=== PATIENT | female | born 1995 | race Caucasian/White ===

== ENCOUNTER 2017-08-11 09:16 | Emergency (ER) | payer SELFPAY ==
[~2017-08-11] VITALS: Ht 157.5 cm; Wt 85.0 kg
[2017-08-11 09:19] VITALS: BP 130/68; PULSE 88; RESP 16; TEMP 98.8; O2SAT 100
--- NOTE | 2017-08-11 09:23 | PD ---
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 Patient says that she bleeds almost 4 days a week. It can range anywhere from spotting to a menstrual kind of bleeding all within a day. She soaks on an average 2 pads a day. She has not been dizzy or lightheaded. No cramps. She may occasionally pass small clots. Patient achieved menarche at the age of 11 and has had irregular menstrual periods since then. She does not have a ONCOLOGY RADIATION PHYSICIAN doctor. Patient smokes occasionally cigars. Vital signs were stable. She checked a home test a few days ago which was negative. She is sexually active without any protection [facility] Past Medical History Narrative Medical List of her past medical, surgical, social and family history is reviewed from the nursing note. ?: Unknown Social History Tobacco Use: Yes Allergies-Medications (Allergen,Severity, Reaction): Coded Allergies: No Known Allergies (Unverified , 08/11/17) Comments No known drug allergies. Reported Meds & Prescriptions Reported Meds & Active Scripts Active Ortho Tri-Cyclen (Norgestimate-Ethinyl Estradiol) 0.18/0.215/0.25 mg-35 Mcg Tab 1 Tab PO DAILY Narrative Medication List of her home medications reviewed from the nursing note. Review of Systems Except as stated in HPI: all other systems reviewed are Neg Genitourinary: Positive: Vaginal Bleeding Physical Exam Narrative GENERAL: Awake, alert, no obvious distress SKIN: Focused skin assessment warm/dry. HEAD: Atraumatic. Normocephalic. EYES: Pupils equal and round. No scleral icterus. No injection or drainage. ENT: No nasal bleeding or discharge. Mucous membranes pink and moist. NECK: Trachea midline. No JVD. CARDIOVASCULAR: Regular rate and rhythm. No murmur appreciated. RESPIRATORY: No accessory muscle use. Clear to auscultation. Breath sounds equal bilaterally. GASTROINTESTINAL: Abdomen soft, non-tender, nondistended. Hepatic and splenic margins not palpable. MUSCULOSKELETAL: No obvious deformities. No clubbing. No cyanosis. No edema. NEUROLOGICAL: Awake and alert. No obvious cranial nerve deficits. Motor grossly within normal limits. Normal speech. PSYCHIATRIC: Appropriate mood and affect; insight and judgment normal. Data Data Last Documented VS Orders Orders Ed Urine Pregnancytest Poc (08/11/17 09:26) Ed Discharge Order (08/11/17 09:53) Mandatory Outpatient Referral (08/11/17 09:53) MDM Medical Decision Making Medical Screen Exam Complete: Yes Emergency Medical Condition: Yes Medical Record Reviewed: Yes Differential Diagnosis Dysfunctional uterine bleeding, Narrative Course 9:57 AM urine test was negative. I am comfortable discharging this patient home on oral contraceptive pills to regularize her menstrual cycle. I have recommended that she should not be smoking while on the medication because of the risk of thromboembolic events. Patient understands it. I have also given a mandatory referral with Dr. Puga who is on-call for ONCOLOGY RADIATION PHYSICIAN today. Procedures EKG Prior to Arrival: No Diagnosis Primary Impression: Dysfunctional uterine bleeding Referrals: Kayley Puga MD 2 days Additional Instructions: Follow-up with the ONCOLOGY RADIATION PHYSICIAN who is name and number been provided to you on this discharge instruction. Call the office to get an appointment. Take the medication as per the prescription direction. He should not be smoking while you are on this medication. Return to the ER if condition worsens or any other new concerns. Med/Other Pt SpecificInfo: Prescription(s) given Scripts Norgestimate-Ethinyl Estradiol (Ortho Tri-Cyclen) 0.18/0.215/0.25 mg-35 Mcg Tab 1 TAB PO DAILY for Control, #1 PACK 0 Refills Prov: Tay Elena MD 08/11/17 Disposition: 01 DISCHARGE HOME Condition: Stable Tay Elena MD Aug 11, 2017 09:23
[2017-08-11] MEDS ORDERED: ORTHTAB4 PO (09:52)
== END 2017-08-11 10:16 | disposition home or self-care (01) ==
LOC: NEPD 09:16
DX: N93.8 Other specified abnormal uterine and vaginal bleeding (principal); Z72.0 Tobacco use
CPT/HCPCS: 84703; 99283

== ENCOUNTER 2017-09-27 16:00 | Emergency (ER) | payer MEDICAID ==
[~2017-09-27] VITALS: Ht 157.5 cm; Wt 77.3 kg
[~2017-09-27 16:00] MED LIST: ORTHTAB4 PO
[2017-09-27 16:02] VITALS: BP 123/79; PULSE 67; RESP 18; TEMP 99.4; O2SAT 98
--- NOTE | 2017-09-27 16:33 | PD ---
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 Says that previous to 3 months she had relatively normal cycles lasting approximately 28 days with 4- 5 days of menstrual bleeding. Says that she has had increased frequency of bleeding, heavier bleeding and cramping. Denies vaginal discharge or odors. Says that she currently has some mild cramping and some spotting. Says that she was here last month for the same issue and was prescribed oral contraceptives. Says that this medication has somewhat decreased her bleeding and spotting but she ran out in the beginning of the month. She has not followed up as discussed since last visit. She denies any lightheadedness or dizziness. Says that she occasionally has unprotected sex and is unsure if she is . She has no other complaints today. PFSH Past Medical History Diminished Hearing: No Immunizations Current: Yes ?: Unknown LMP: 09/15/17 : 0 Para: 0 Miscarriage: 0 : 0 Social History Alcohol Use: Yes (OCC) Tobacco Use: Yes Substance Use: No Allergies-Medications (Allergen,Severity, Reaction): Coded Allergies: No Known Allergies (Unverified , 09/27/17) Reported Meds & Prescriptions Reported Meds & Active Scripts Active Bactrim DS (Sulfamethoxazole-Trimethoprim) 800-160 Mg Tab 1 Tab PO BID Review of Systems Except as stated in HPI: all other systems reviewed are Neg Physical Exam Narrative GENERAL: Moderate, nourished slightly anxious SKIN: Focused skin assessment warm/dry. HEAD: Atraumatic. Normocephalic. EYES: Pupils equal and round. No scleral icterus. No injection or drainage. ENT: No nasal bleeding or discharge. Mucous membranes pink and moist. NECK: Trachea midline. No JVD. CARDIOVASCULAR: Regular rate and rhythm. No murmur appreciated. RESPIRATORY: No accessory muscle use. Clear to auscultation. Breath sounds equal bilaterally. GASTROINTESTINAL: Abdomen soft, non-tender, nondistended. Hepatic and splenic margins not palpable. No CVA tenderness MUSCULOSKELETAL: No obvious deformities. No clubbing. No cyanosis. No edema. NEUROLOGICAL: Awake and alert. No obvious cranial nerve deficits. Motor grossly within normal limits. Normal speech. PSYCHIATRIC: Appropriate mood and affect; insight and judgment normal. Data Data Last Documented VS Vital Signs Date Time Temp Pulse Resp B/P (MAP) Pulse Ox O2 Delivery O2 Flow Rate FiO2 09/27/17 16:02 99.4 67 18 123/79 (94) 98 Orders Orders Urinalysis - C+S If Indicated (09/27/17 16:32) Ed Urine Pregnancytest Poc (09/27/17 16:32) Urine Culture (09/27/17 16:40) Ed Discharge Order (09/27/17 18:22) Labs Laboratory Tests Test 09/27/17 16:40 Urine Color YELLOW Urine Turbidity HAZY Urine pH 7.0 Urine Specific [place] 1.039 Urine Protein 30 mg/dL Urine Glucose (UA) NEG mg/dL Urine Ketones TRACE mg/dL Urine Occult Blood LARGE Urine Nitrite NEG Urine Bilirubin NEG Urine Urobilinogen 2.0 MG/DL Urine Leukocyte Esterase TRACE Urine RBC 8 /hpf Urine WBC 16 /hpf Urine Squamous Epithelial Cells 5 /hpf Urine Bacteria RARE /hpf Urine Mucus MOD /lpf Microscopic Urinalysis Comment CULTURE INDICATED MDM Medical Decision Making Medical Screen Exam Complete: Yes Emergency Medical Condition: Yes Differential Diagnosis Medication noncompliance, abnormal uterine bleeding, status Narrative Course 22 y female presents emergency department for evaluation of irregular menstrual bleeding that has been persistent for the last 3 months. Says that previous to 3 months she had relatively normal cycles lasting approximately 28 days with 4- 5 days of menstrual bleeding. Says that she has had increased frequency of bleeding, heavier bleeding and cramping. Says that she currently has some mild cramping and some spotting. Says that she was here last month for the same issue and was prescribed oral contraceptives. Says that this medication has somewhat decreased her bleeding cramping, and spotting but she ran out in the beginning of the month. She has not followed up as discussed since last visit. She denies any lightheadedness or dizziness. Her symptoms are similar to the previous episode when she was in the ED last month. Says that she occasionally has unprotected sex and is unsure if she is . She has no other complaints today. A mandatory referral was placed at her last visit to Dr. Puga. Patient says that she is unaware of this referral. Patient was prescribed Ortho Tri-Cyclen last visit. She states compliance with this medication but there were no refills so I suspect she is not taking this medication. She admits that she ran out in the beginning of the month. Urine negative Urinalysis suggestive of urinary tract infection. Patient will be discharged with Bactrim. Advised to follow-up with Dr. Puga as previously discussed. I reiterated this to her and explained why this was important. Mandatory referral was placed last visit. Follow up with [facility]. Diagnosis Primary Impression: Cystitis Referrals: Kayley Puga MD Stock Preparation Operator Additional Instructions: Follow up with the energy advisor as discussed. Take all medications as prescribed. Scripts Sulfamethoxazole-Trimethoprim (Bactrim DS) 800-160 Mg Tab 1 TAB PO BID for Infection, #14 TAB 0 Refills Prov: Virgil Dillard MD 09/27/17 Disposition: 01 DISCHARGE HOME Condition: Stable Beverley Fung September 27, 2017 16:33
[2017-09-27] MEDS ORDERED: SODIUM CHLOR 0.9% 1000 ML INJ 1,000 ML IV SCH (16:57)
[2017-09-27] MEDS ORDERED: diphenhydrAMINE HCL 50 MG/ML VIAL IM ONE (17:00)
[2017-09-27] MEDS ORDERED: methylPREDNISolone SOD SUCC 125 MG/2 ML VIAL IM ONE (17:00)
[2017-09-27] MEDS ORDERED: EPINEPHrine HCL (1:1000) 1 MG/ML VIAL IM ONE (17:00)
[2017-09-27] MEDS ORDERED: SODIUM CHLORIDE 0.9% FLUSH 10 ML FLUSH IV FLUSH PRN (17:00)
[2017-09-27 17:01] LABS: BACTERIA, URINE RARE /hpf; BILIRUBIN, URINE NEG (NEG); BLOOD, URINE LARGE (NEG); GLUCOSE,URINE NEG (NEG); KETONE, URINE TRACE mg/dL (NEG); MUCUS URINE MOD /lpf (OCC); NITRITE,URINE NEG (NEG); SQUAMOUS EPITHELIAL CELL URINE 5 /hpf (0-5); URINE COLOR YELLOW (YELLW/STRAW); URINE LEUKOCYTE ESTERASE TRACE (NEG)
[2017-09-27] MEDS ORDERED: BACT800T5 PO (18:17)
== END 2017-09-27 18:34 | disposition home or self-care (01) ==
LOC: NEPD 16:00
DX: N30.90 Cystitis, unspecified without hematuria (principal)
CPT/HCPCS: 81001; 84703; 87086; 99283

== ENCOUNTER 2017-10-12 12:04 | Emergency (ER) | payer OTHER ==
[~2017-10-12] VITALS: Ht 157.5 cm; Wt 56.5 kg
[~2017-10-12 12:04] MED LIST changes: +BACT800T5 PO; -ORTHTAB4 PO
[2017-10-12 12:08] VITALS: BP 119/79; PULSE 99; RESP 16; TEMP 99.4; O2SAT 99
--- NOTE | 2017-10-12 13:11 | PD ---
HPI . Laceration Chief Complaint: Laceration/Skin Injury Time Seen by Provider: 13:02 Travel History International Travel<30 days: No Contact w/Intl Traveler<30days: No Traveled to known affect area: No History of Present Illness HPI Patient presents with chief complaint of a laceration to her left middle finger. It was sustained just prior to arrival with a knife which was being used to cut open a bag of chicken. She does not know the date of her last tetanus shot. She states that the wound is quite painful and rates the pain at 7/10. PFSH Past Medical History Diminished Hearing: No Immunizations Current: Yes ?: Not LMP: IRREGULAR : 0 Para: 0 Miscarriage: 0 : 0 Social History Alcohol Use: Yes (OCC) Tobacco Use: Yes Substance Use: No Allergies-Medications (Allergen,Severity, Reaction): Coded Allergies: No Known Allergies (Unverified , 09/27/17) Reported Meds & Prescriptions Reported Meds & Active Scripts Active Bactrim DS (Sulfamethoxazole-Trimethoprim) 800-160 Mg Tab 1 Tab PO BID Review of Systems Except as stated in HPI: all other systems reviewed are Neg Physical Exam Narrative GENERAL: Awake and alert and in no acute distress. SKIN: Warm and dry. Normal color and turgor. She has a laceration to the tip of the left index finger. Wound edges are well approximated. Bleeding is controlled. The laceration is maybe 3 or 4 mm in length. HEAD: Normocephalic/atraumatic. EYES: Pupils are equal. Extraocular movements are intact. NECK: Normal range of motion. Supple. CARDIOVASCULAR: Regular rate and rhythm. RESPIRATORY: Nonlabored respirations. Normal sats. MUSCULOSKELETAL: Atraumatic. Normal muscle tone. NEUROLOGICAL: A and O 3. Nonfocal. PSYCHIATRIC: Appropriate mood and affect. Data Data Last Documented VS Vital Signs Date Time Temp Pulse Resp B/P (MAP) Pulse Ox O2 Delivery O2 Flow Rate FiO2 10/12/17 12:08 99.4 99 16 119/79 (92) 99 Orders Orders Tetanus/Diphtheria Tox Adult (Tetanus/Di (10/12/17 13:15) Ketorolac Inj (Toradol Inj) (10/12/17 13:15) Wound Care (10/12/17 13:05) MDM Medical Decision Making Medical Screen Exam Complete: Yes Emergency Medical Condition: Yes Differential Diagnosis Differential diagnosis includes but is not limited to skin laceration, muscular laceration, tendon laceration, neurovascular laceration. Narrative Course This patient presents for the treatment of a laceration to the tip of her left middle finger. The laceration is very small. The wound edges are well approximated. There is no bleeding. Her tetanus will be updated. She is complaining with pain and will be given a shot of Toradol. She will then be discharged home with instructions in local wound care. Diagnosis Primary Impression: Finger laceration Qualified Codes: S61.213A - Laceration without foreign body of left middle finger without damage to nail, initial encounter Patient Instructions: General Instructions, Laceration (DC) Additional Instructions: Clean the wound twice daily with soap and water then apply an antibiotic ointment. Disposition: 01 DISCHARGE HOME Condition: Stable Cyn Jean Baptiste MD Oct 12, 2017 13:11
[2017-10-12] MEDS ORDERED: TETANUS/DIPHTHERIA TOXOID ADULT 0.5 ML VIAL IM ONE (13:15)
[2017-10-12] MEDS ORDERED: KETOROLAC TROMETHAMINE 60 MG/2 ML (IM) VIAL IM ONE (13:15)
== END 2017-10-12 15:10 | disposition home or self-care (01) ==
LOC: NEPD 12:04
DX: S61.213A Laceration without foreign body of left middle finger without damage to nail, initial encounter (principal); W26.0XXA Contact with knife, initial encounter; Y93.G9 Activity, other involving cooking and grilling; Y92.000 Kitchen of unspecified non-institutional (private) residence as the place of occurrence of the external cause; Z72.0 Tobacco use; Z23 Encounter for immunization
CPT/HCPCS: 90471; 90714